=== PATIENT | male | born 1980 | race African-American/Black ===

== ENCOUNTER 2021-05-17 03:17 | Emergency (ER) | payer BC ==
--- NOTE | 2021-05-17 03:51 | ER ---
Nurse's Notes [facility] Name: David Dozier Age: 40 yrs Sex: Male : 1980 Arrival Date: 05/17/2021 Time: 03:22 Bed 13 Private MD: Diagnosis: Insufficient sleep syndrome;Other sleep disorders;Sleep deprivation Presentation: 05/17 03:30 Chief complaint: Patient states: Has been unable to sleep since [place]; Reports lp1 slept 1.5 hr tonight and has been unable to go back to sleep; Reports headache. Coronavirus screen: At this time, the client does not indicate any symptoms associated with coronavirus-19. Ebola Screen: No symptoms or risks identified at this time. Initial Sepsis Screen: Does the patient meet any 2 criteria? No. Patient's initial sepsis screen is negative. Does the patient have a suspected source of infection? No. Patient's initial sepsis screen is negative. Risk Assessment: Do you want to hurt yourself or someone else? Patient reports no desire to harm self or others. Onset of symptoms was May 17, 2021. 03:30 Method Of Arrival: Ambulatory lp1 03:30 Acuity: EDE 4 lp1 Historical: - Allergies: 03:33 No Known Allergies; lp1 - Home Meds: 03:33 None [Active]; lp1 - PMHx: 03:33 Sleep apnea; lp1 - PSHx: 03:33 Leg sx; lp1 - Immunization history:: Adult Immunizations up to date, Client reports receiving the 2nd dose of the Covid vaccine. - Social history:: Smoking status: Patient reports the use of cigarette tobacco products, denies chronic smoking, but will smoke occasionally. Screenin:34 Abuse screen: Denies threats or abuse. Denies injuries from another. Nutritional lp1 screening: No deficits noted. Tuberculosis screening: No symptoms or risk factors identified. Fall Risk None identified. Assessment: 03:35 General: Appears in no apparent distress. Behavior is calm, cooperative, appropriate kd3 for age. Pain: Denies pain. 03:36 Neuro: No deficits noted. Level of Consciousness is awake, alert, obeys commands, kd3 Oriented to person, place, time, situation, Appropriate for age. Cardiovascular: No deficits noted. Patient's skin is warm and dry. Respiratory: No deficits noted. Airway is patent Respiratory effort is even, unlabored. GI: No deficits noted. : No deficits noted. Vital Signs: 03:30 BP 174 / 103; Pulse 77; Resp 18; Temp 97.9(O); Pulse Ox 100% on R/A; Weight 111.13 kg lp1 (R); Height 6 ft. 4 in. (193.04 cm); Pain 0/10; 03:30 Body Mass Index 29.82 (111.13 kg, 193.04 cm) lp1 ED Course: 03:22 Patient arrived in ED. bp1 03:27 Mata Torres MD is Attending Physician. kdr 03:33 Triage completed. lp1 03:33 Arm band placed on. lp1 03:34 Elle Aguila, [place] is Primary Nurse. kd3 03:35 Patient has correct armband on for positive identification. Bed in low position. Call kd3 light in reach. 03:49 Issa Reid MD is Referral Physician. kdr Administered Medications: 04:32 Drug: Propranolol 20 mg Route: PO; kd3 Outcome: 03:50 Discharge ordered by . kdr 04:32 Patient left the ED. kd3 Signatures: Mata Torres MD MD kdr Nicci Lovell, RN RN lp1 Digna Leone bp1 Elle Aguila, [place] CHILDRESS kd3
--- NOTE | 2021-05-17 03:51 | EDPHYS ---
Physician Documentation [facility] Name: David Dozier Age: 40 yrs Sex: Male : 1980 Arrival Date: 05/17/2021 Time: 03:22 Bed 13 Private MD: ED Physician Mata Torres HPI: 05/17 03:44 This 40 yrs old Black Male presents to ER via Ambulatory with complaints of Unable To kdr Sleep. 03:44 Patient states that since he has had a hard time getting more than 2 to 3 kdr hours of sleep per night. Severity of symptoms: At their worst the symptoms were mild moderate just prior to arrival, in the emergency department the symptoms are unchanged. The patient has not experienced similar symptoms in the past. The patient has not recently seen a physician. Historical: - Allergies: 03:33 No Known Allergies; lp1 - Home Meds: 03:33 None [Active]; lp1 - PMHx: 03:33 Sleep apnea; lp1 - PSHx: 03:33 Leg sx; lp1 - Immunization history:: Adult Immunizations up to date, Client reports receiving the 2nd dose of the Covid vaccine. - Social history:: Smoking status: Patient reports the use of cigarette tobacco products, denies chronic smoking, but will smoke occasionally. ROS: 03:44 Constitutional: Negative for fever, chills, and weight loss, Eyes: Negative for injury, kdr pain, redness, and discharge, ENT: Negative for injury, pain, and discharge, Neck: Negative for injury, pain, and swelling, Cardiovascular: Negative for chest pain, palpitations, and edema, Respiratory: Negative for shortness of breath, cough, wheezing, and pleuritic chest pain, Abdomen/GI: Negative for abdominal pain, nausea, vomiting, diarrhea, and constipation, Back: Negative for injury and pain, : Negative for injury, bleeding, discharge, and swelling, MS/Extremity: Negative for injury and deformity, Skin: Negative for injury, rash, and discoloration, Neuro: Negative for headache, weakness, numbness, tingling, and seizure activity. Psych: Negative for depression, anxiety, suicide ideation, homicidal ideation, and hallucinations, Allergy/Immunology: Negative for hives, rash, and allergies, Endocrine: Negative for neck swelling, polydipsia, polyuria, polyphagia, and marked weight changes, Hematologic/Lymphatic: Negative for swollen nodes, abnormal bleeding, and unusual bruising. 03:44 Cardiovascular: Positive for palpitations, Patient states that he is intermittently and infrequently had palpitations. 03:44 Neuro: Positive for Sleep deprivation, Negative for altered mental status, dizziness, gait disturbance, headache, hearing loss, numbness, seizure activity, speech changes, syncope, near syncope, tingling, tinnitus, tremor, visual changes, weakness. Exam: 03:44 Constitutional: This is a well developed, well nourished patient who is awake, alert, kdr and in no acute distress. It is noted that he is hypertensive with a pressure of 174/103. His pulse is 77. His vital signs are otherwise normal Head/Face: Normocephalic, atraumatic. Eyes: Pupils equal round and reactive to light, extra-ocular motions intact. Lids and lashes normal. Conjunctiva and sclera are non-icteric and not injected. Cornea within normal limits. Periorbital areas with no swelling, redness, or edema. Neck: Trachea midline, no thyromegaly or masses palpated, and no cervical lymphadenopathy. Supple, full range of motion without nuchal rigidity, or vertebral point tenderness. No Meningismus. Chest/axilla: Normal chest wall appearance and motion. Nontender with no deformity. No lesions are appreciated. Cardiovascular: Regular rate and rhythm with a normal S1 and S2. No gallops, murmurs, or rubs. Normal PMI, no JVD. No pulse deficits. Respiratory: Lungs have equal breath sounds bilaterally, clear to auscultation and percussion. No rales, rhonchi or wheezes noted. No increased work of breathing, no retractions or nasal flaring. Abdomen/GI: Soft, non-tender, with normal bowel sounds. No distension or tympany. No guarding or rebound. No evidence of tenderness throughout. Back: No spinal tenderness. No costovertebral tenderness. Full range of motion. Skin: Warm, dry with normal turgor. Normal color with no rashes, no lesions, and no evidence of cellulitis. MS/ Extremity: Pulses equal, no cyanosis. Neurovascular intact. Full, normal range of motion. Neuro: Awake and alert, GCS 15, oriented to person, place, time, and situation. Cranial nerves II-XII grossly intact. Motor strength 5/5 in all extremities. Sensory grossly intact. Cerebellar exam normal. Normal gait. Psych: Awake, alert, with orientation to person, place and time. Behavior, mood, and affect are within normal limits. Vital Signs: 03:30 BP 174 / 103; Pulse 77; Resp 18; Temp 97.9(O); Pulse Ox 100% on R/A; Weight 111.13 kg lp1 (R); Height 6 ft. 4 in. (193.04 cm); Pain 0/10; 03:30 Body Mass Index 29.82 (111.13 kg, 193.04 cm) lp1 MDM: 03:44 Data reviewed: vital signs, nurses notes. Counseling: I had a detailed discussion with kdr the patient and/or guardian regarding: the historical points, exam findings, and any diagnostic results supporting the discharge/admit diagnosis, the need for outpatient follow up. ED course: Patient was nontoxic-appearing in the ED. Do not believe this to be a thyroid or other metabolic issue at this time. While his blood pressure is elevated his pulse is well within normal limits. We discussed the use of Benadryl 50 mg every 6 hours initially. That if this was not successful then he could try benzodiazepine. If none of these elements worked then he could follow-up with his primary care physician or return to the ED. Patient was happy with the care provided and the plan for medications, discharge and follow-up. 03:50 Patient medically screened. kdr Administered Medications: 04:32 Drug: Propranolol 20 mg Route: PO; kd3 Disposition Summary: 05/17/21 03:50 Discharge Ordered Location: Home kdr Problem: new kdr Symptoms: have improved kdr Condition: Stable kdr Diagnosis - Insufficient sleep syndrome kdr - Other sleep disorders kdr - Sleep deprivation kdr Followup: kdr - With: Issa Reid MD - When: 2 - 3 days - Reason: If symptoms return, Further diagnostic work-up, Recheck today's complaints, Continuance of care, Re-evaluation by your physician Discharge Instructions: - Discharge Summary Sheet kdr - Sleep Studies kdr - Quality Sleep Information, Adult kdr - Hypertension, Adult, [id number] kdr Forms: - Medication Reconciliation Form kdr - Thank You Letter kdr Prescriptions: - Ativan 1 mg Oral Tablet - take 1 tablet by ORAL route At bedtime As needed; 4 tablet; Refills: 0, Product kdr Selection Permitted - Benadryl 25 mg Oral Capsule - take 2 capsule by ORAL route every 6 hours As needed; 20 tablet; Refills: 0, kdr Product Selection Permitted Signatures: Mata Torres MD MD kdr Nicci Lovell RN RN lp1 Elle Aguila RN RN kd3
[2021-05-17] MEDS ORDERED: PROPRANOLOL HCL 10 MG TAB ONE (04:13)
[2021-05-17 04:38] VITALS: BP 174/103; TEMP 97.9; O2SAT 100
== END 2021-05-17 04:32 | disposition home or self-care (01) ==
LOC: ER 03:17
DX: F51.12 Insufficient sleep syndrome (principal); F17.210 Nicotine dependence, cigarettes, uncomplicated
CPT/HCPCS: 99282

== ENCOUNTER 2024-10-10 07:46 | Day surgery (SDC) | payer BC ==
[2024-10-08 14:25] LABS: Anion Gap 9.3 mEq/L (5.0-15.0); Potassium 4.3 mEq/L (3.5-5.1)
[2024-10-10] MEDS: Ringers Lactate 1,000 ML IV ONE (08:15)
[2024-10-10] MEDS ORDERED: LIDOCAINE 1% MPF 5 ML VIAL ONE (09:45)
[2024-10-10] MEDS ORDERED: propofoL 200 MG/20 ML VIAL IV ONE (09:45)
[2024-10-10] MEDS ORDERED: GLYCOPYRROLATE 0.2 MG/ML SYR ONE (10:33)
[2024-10-10 10:47] VITALS: TEMP 97.4
[2024-10-10 10:48] VITALS: BP 112/44; O2SAT 95
--- NOTE | 2024-10-13 17:01 | EKG ---
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
== END 2024-10-10 10:51 | disposition home or self-care (01) ==
LOC: OR 07:46
PROVIDERS: ATTEND Surgery
PROC: 0DJD8ZZ Inspection of Lower Intestinal Tract, Via Natural or Artificial Opening Endoscopic (ICD-10-PCS; principal; 2024-10-10 09:30)
DX: Z12.11 Encounter for screening for malignant neoplasm of colon (principal); K64.3 Fourth degree hemorrhoids; K64.8 Other hemorrhoids
CPT/HCPCS: 93005; 80048; 36415; 45378; J2704; J2003; J7120